=== PATIENT | male | born 2000 | race Caucasian/White ===

== ENCOUNTER 2023-11-03 16:41 | Outpatient (CLI) | payer OTHER, SELFPAY ==
[2023-11-03 20:12] LABS: Chlamydia DNA Amplified* NOT DETECTED (No Detected); GC DNA Amplified* NOT DETECTED (No Detected)
== END 2023-11-03 16:42 | disposition home or self-care (01) ==
LOC: NFLDREF 16:43
PROVIDERS: Visit Provider Registered Nurse
DX: J02.9 Acute pharyngitis, unspecified (principal)
CPT/HCPCS: 87491; 87591; 87651

== ENCOUNTER 2024-07-13 08:30 | Day surgery (SDC) | payer OTHER, SELFPAY ==
[2024-07-13] VITALS (15 sets, daily range): BP systolic 102–145; BP diastolic 63–93; PULSE 62–101; RESP 13–19; TEMP 36.6–36.7; O2SAT 95–100; BMI 24.4
[2024-07-13] MEDS: LACTATED RINGERS 1000 ML 1,000 ML 100 ML IV ×2 (09:06→11:13)
[2024-07-13] MEDS: SODIUM CHLORIDE 0.9 % (FLUSH) 10 ML SYRINGE IVF (09:06)
[2024-07-13] MEDS: LACTATED RINGERS 1000 ML 1,000 ML 35 ML IV (09:15)
--- NOTE | 2024-07-13 10:02 | W.PM.ENTPROC ---
Procedure Note Date of procedure: 07/13/24 Procedure: Preop diagnosis chronic tonsillitis, tonsillar hypertrophy Postoperative diagnosis same Procedure tonsillectomy Under general endotracheal anesthesia patient was prepped and draped usual fashion. The McIvor mouth gag was inserted the tongue retracted forward. The right tonsil was removed with a combination of needlepoint and bipolar cautery. Meticulous hemostasis was achieved with suction cautery. This was repeated on the left side in identical fashion. The nasopharynx was inspected there was no significant adenoid tissue. The gag was let down and the patient observed and there was no further bleeding. Patient was extubated in the operating taken recovery in satisfactory condition. Blood loss was 10 mL Surgeon: Amadou Fonseca MD
--- NOTE | 2024-07-13 10:13 | W.ANESCHARGE ---
Anesthesia Charges Start Date/Time Anesthesia Start Date: 07/13/24 Anesthesia Start Time: 09:36 Stop Date/Time Anesthesia Stop Date: 07/13/24 Anesthesia Stop Time: 10:15
--- NOTE | 2024-07-13 10:22 | P.ANES_ITS ---
Anesthesia Charges Start Date/Time Anesthesia Start Date: 07/13/24 Anesthesia Start Time: 09:36 Stop Date/Time Anesthesia Stop Date: 07/13/24 Anesthesia Stop Time: 10:15 Coding CPT Codes CPT Codes: ANESTH PROCEDURE ON MOUTH - 02426 ([id number]) P1 - NORMAL HEALTHY PATIENT, QK - PHARMACY TECHNICIAN 2-4 CNCRNT ANES PROC, QX - CHANGE CONTROL COORDINATOR SVDedra W/ MED DIRECTION
--- NOTE | 2024-07-13 10:22 | W.ANESCHARGE ---
Anesthesia Charges Start Date/Time Anesthesia Start Date: 07/13/24 Anesthesia Start Time: 09:36 Stop Date/Time Anesthesia Stop Date: 07/13/24 Anesthesia Stop Time: 10:15 Coding CPT Codes CPT Codes: ANESTH PROCEDURE ON MOUTH - 02695 ([id number]) P1 - NORMAL HEALTHY PATIENT, QK - STAFFING EXECUTIVE 2-4 CNCRNT ANES PROC, QX - TANK COOPER SVDedra W/ MED DIRECTION
[2024-07-13] MEDS: fentaNYL 100 MCG/2 ML inj 50 MCG IVP (10:33)
[2024-07-13] MEDS: ACETAMINOPHEN 160 MG/5 ML CUP 320 MG PO (11:06)
[2024-07-13] MEDS: IBUPROFEN 100 MG/5 ML SUSP 200 MG PO (11:07)
== END 2024-07-13 12:33 | disposition home or self-care (01) ==
LOC: OR 08:31
PROVIDERS: PCP Registered Nurse; Visit Provider Otolaryngology
PROC: (CPT 42826; principal; 2024-07-13 09:45)
DX: J35.01 Chronic tonsillitis (principal)
CPT/HCPCS: 42826; 00170; 88304; A9270; J0330; J1100; J1630; J2250; J2405; J2704; J3010; J7120